=== PATIENT | female | born 1970 | race Caucasian/White ===

== ENCOUNTER 2019-11-26 18:37 | Emergency (ER) | payer OTHER ==
[~2019-11-26] VITALS: Ht 160 cm; Wt 68.0 kg
--- NOTE | ~2019-11-26 | EKG ---
[place] [address] ELECTROCARDIOGRAM REPORT Name: MITCHELL COUGHLIN Room: [facility]#: [id number] Admission: 11/26/19 Attend Phys: Discharge: 11/27/19 Date of : 66 Date of Service: 11/26/192009 Report #: [id number] THIS REPORT FOR: cc: Xiomara De Leon MD, Elizabeth MD Epiphany, Epiphany MD ~ THIS REPORT FOR: //name// [facility] ED Test Date: 2019-11-26 Test Time: 20:10:26 Pat Name: MITCHELL COUGHLIN Department: Room: Gender: F Chef: [place] : 1970 Requested By: Lorena Hugo Order Number: [id number] MD: Measurements Intervals [place] Rate: 70 P: 46 IA: 192 QRS: 71 QRSD: 126 T: -18 QT: 411 QTc: 444 Interpretive Statements Sinus rhythm Nonspecific intraventricular conduction delay Abnrm T, consider ischemia, anterolateral lds No previous ECG available for comparison [email or web address] By: 09 09 Epiphany Epiphany, /DIMITRIOS
[2019-11-26] MEDS ORDERED: CLONAZEPAM 0.50.5 M1 PO (19:01)
[2019-11-26] MEDS ORDERED: TRAMADOL100 MG PO (19:01)
[2019-11-26] MEDS ORDERED: LEXAPRO 10 MG T10 M2 PO ×2 (19:01→19:02)
[2019-11-26 19:27] LABS: ABSOLUTE EOSINOPHILS 0.2 thou/uL (0.0-0.7); ABSOLUTE LYMPHOCYTES 1.4 thou/uL (0.8-5.3); ABSOLUTE MONOCYTES 0.4 thou/uL (0.0-1.2); ABSOLUTE NEUTROPHILS 5.4 thou/uL (1.6-8.1); BASOPHILS 0.6 %; EOSINOPHILS 2.4 %; HEMATOCRIT 34.1 % (37.0-47.0); HEMOGLOBIN 11.9 gm/dL (12.0-15.0); MCHC 34.9 g/dL (28.0-37.0); MCV 91.5 fL (80.0-100.0); MONOCYTES 5.2 %; MPV 8.1 fl. (7.2-11.1); NUCLEATED RBCS 0 /100WBC; PLATELET COUNT* 276 thou/uL (150-400); POLYS 72.8 %; RBC 3.72 mil/uL (4.20-5.00); RDW-CV 12.8 % (10.5-14.5); WBC 7.4 thou/uL (4.0-11.0)
[2019-11-26 19:34] LABS: CALCIUM 8.7 mg/dL (8.5-10.1); CREATININE 0.7 mg/dL (0.6-1.3); POTASSIUM 3.2 mmol/L (3.5-5.1)
[2019-11-26 19:39] LABS: ALBUMIN 3.7 g/dL (3.4-5.0); TOTAL BILIRUBIN 0.2 mg/dL (<0.1-1.0); TOTAL PROTEIN 6.7 g/dL (6.4-8.2)
[2019-11-26 19:46] LABS: SALICYLATE < 2.8 mg/dL (2.8-20.0)
[2019-11-26 19:48] LABS: ACETAMINOPHEN < 2 ug/mL (10-30); ALCOHOL < 10 mg/dL (<10)
[2019-11-26 23:40] LABS: URINE BILIRUBIN NEGATIVE (Negative); URINE BLOOD NEGATIVE (Negative); URINE CLARITY CLEAR; URINE COLOR YELLOW; URINE GLUCOSE-RANDOM NEGATIVE (Negative); URINE KETONES NEGATIVE (Negative); URINE LEUKOCYTES-REFLEX NEGATIVE (Negative); URINE NITRITE-REFLEX NEGATIVE (Negative); URINE PROTEIN NEGATIVE (Negative); URINE SPECIFIC GRAVITY 1.025 (1.005-1.030); URINE UROBILINOGEN 0.2 E.U./dl (0.2-1.0)
[2019-11-26 23:48] LABS: AMP/METHAMP Negative (Negative); BARBITURATES Negative (Negative); BENZODIAZEPINES POSITIVE (Negative); COCAINE Negative (Negative); METHADONE Negative (Negative); OPIATES Negative (Negative); PCP Negative (Negative); THC Negative (Negative)
[2019-11-27 01:50] VITALS: BP 107/67
== END 2019-11-27 02:07 | disposition still patient (30) ==
LOC: M.ERS 18:37
PROVIDERS: Emergency Medicine
DX: T40.4X2A Poisoning by other synthetic narcotics, intentional self-harm, initial encounter (principal); Y92.89 Other specified places as the place of occurrence of the external cause